=== PATIENT | male | born 1935 | race Caucasian/White ===

== ENCOUNTER 2017-04-13 19:27 | Emergency (ER) | payer MEDICARE, OTHER ==
[2011-12-04 06:31] VITALS: BMI 32.3
== END 2017-04-13 20:27 | disposition home or self-care (01) ==
LOC: D.ER 19:27
DX: S91.311A Laceration without foreign body, right foot, initial encounter (principal); X58.XXXA Exposure to other specified factors, initial encounter; Y93.89 Activity, other specified; Y92.89 Other specified places as the place of occurrence of the external cause; K21.9 Gastro-esophageal reflux disease without esophagitis; I10 Essential (primary) hypertension

== ENCOUNTER → 2018-04-21 08:02 | Outpatient (CLI) | payer MEDICARE, OTHER ==
[2011-12-04 06:31] VITALS: BMI 32.3
[2018-04-21 08:21] LABS: BASOPHILS 0.4 % (0-2); EOSINOPHILS 3.5 % (0-7); HEMATOCRIT 43.1 % (42.0-54.0); IMMATURE GRANULOCYTES 0.4 % (0-5); LYMPHOCYTES 27.5 % (15-50); MCH 33.2 pg (26.0-34.0); MCHC 34.8 g/dL (31.0-37.0); MCV 95.4 fL (80.0-100.0); MEAN PLATELET VOLUME 11.2 fL (7.4-10.4); MONOCYTES 13.2 % (2-11); PLATELET COUNT 161 10x3/uL (130-400); RBC 4.52 10x6/uL (4.20-6.10); RDW 12.5 % (11.5-14.5); WBC 6.8 10x3/uL (4.8-10.8)
[2018-04-21 08:56] LABS: ALBUMIN 3.5 g/dL (3.4-5.0); ALKALINE PHOSPHATASE 87 U/L (46-116); ALT (SGPT) 64 U/L (10-68); BILIRUBIN - TOTAL 0.76 mg/dL (0.2-1.3); CALC OSMOLALITY 272 mosm/kg (275-300); CALCIUM 8.4 mg/dL (8.5-10.1); CARBON DIOXIDE 28.2 mmol/L (21.0-32.0); CHLORIDE - SERUM 100 mmol/L (98-107); CHOL - HDL RATIO 4.7 ratio (2.3-4.9); CHOLESTEROL, TOTAL 188 mg/dL (0-200); GLUCOSE 159 mg/dL (74-106); HDL CHOLESTEROL 40 mg/dL (32-96); LDL CHOLESTEROL 123 mg/dL (0-100); LDL-HDL RATIO 3.1 ratio (1.5-3.5); POTASSIUM - SERUM 4.5 mmol/L (3.5-5.1); PROTEIN - SERUM 7.5 g/dL (6.4-8.2); SODIUM 135 mmol/L (136-145); TRIGLYCERIDE 126 mg/dL (30-200); UREA NITROGEN 13 mg/dL (7-18); eGFR NON AFRICAN AMERICAN 76 mL/min (90-120)
== END | disposition home or self-care (01) ==
LOC: D.LAB 08:02
PROVIDERS: Family Medicine
DX: I10 Essential (primary) hypertension (principal); I25.10 Atherosclerotic heart disease of native coronary artery without angina pectoris; Z12.5 Encounter for screening for malignant neoplasm of prostate; R53.83 Other fatigue; R79.9 Abnormal finding of blood chemistry, unspecified

== ENCOUNTER 2019-12-12 18:49 | Inpatient (IN) | payer MEDICARE, OTHER ==
[~2019-12-12] VITALS: Ht 172.7 cm; Wt 79.5 kg
[2019-12-12 20:03] LABS: BASOPHILS 0.3 % (0-2); EOSINOPHILS 1.4 % (0-7); HEMATOCRIT 47.7 % (42.0-54.0); HEMOGLOBIN 15.8 g/dL (13.5-17.5); IMMATURE GRANULOCYTES 0.7 % (0-5); LYMPHOCYTES 20.8 % (15-50); MCH 32.3 pg (26.0-34.0); MCHC 33.1 g/dL (31.0-37.0); MCV 97.5 fL (80.0-100.0); MEAN PLATELET VOLUME 10.6 fL (7.4-10.4); MONOCYTES 11.5 % (2-11); NEUTROPHILS 65.3 % (40-80); PLATELET COUNT 167 10x3/uL (130-400); RBC 4.89 10x6/uL (4.20-6.10); RDW 13.5 % (11.5-14.5); WBC 5.9 10x3/uL (4.8-10.8)
[2019-12-12 20:16] LABS: ANION GAP 11.5 mmol/L (8-16); CALCIUM 9.4 mg/dL (8.5-10.1); CARBON DIOXIDE 27.7 mmol/L (21.0-32.0); CREATININE - SERUM 1.2 mg/dL (0.6-1.3); POTASSIUM - SERUM 4.2 mmol/L (3.5-5.1)
[2019-12-12 20:26] LABS: ALBUMIN 3.6 g/dL (3.4-5.0); BILIRUBIN - TOTAL 1.02 mg/dL (0.2-1.3); PROTEIN - SERUM 7.8 g/dL (6.4-8.2); TROPONIN-I 0.031 ng/mL (0.000-0.060)
--- NOTE | 2019-12-12 20:32 | NUR ---
PT SITTING UP IN BED. NO ACUTE DISTRESS NOTED, PT DENIES ANY COMPLAINTS AT THIS TIME. WILL CONTINUE TO MONITOR.
--- NOTE | 2019-12-12 21:14 | NUR ---
URINE SENT TO LAB.
[2019-12-12 21:48] LABS: BACTERIA FEW /hpf (NEGATIVE); BILIRUBIN NEGATIVE (NEGATIVE); GLUCOSE NEGATIVE (NEGATIVE); KETONE NEGATIVE (NEGATIVE); NITRITE NEGATIVE (NEGATIVE); RED CELLS - URINE OCC /hpf (0-5); SPECIFIC GRAVITY 1.015 (1.005-1.020); UROBILINOGEN NORMAL (NORMAL); WHITE CELLS - URINE 0-5 /hpf (NEGATIVE)
--- NOTE | 2019-12-12 22:02 | NUR ---
PT UP TO BEDSIDE COMMODE WITH ASSISTANCE. PT DENIES ANY FURTHER NEEDS AT THIS TIME. NO ACUTE DISTRESS NOTED, WILL CONTINUE TO MONITOR.
[2019-12-13 00:03] VITALS: Ht 172.7 cm; Wt 79.5 kg
[2019-12-13] MEDS ORDERED: ASPIRIN EC81 M1 PO (00:16)
[2019-12-13] MEDS ORDERED: SYNTHROID25 MCG PO (00:16)
[2019-12-13] MEDS ORDERED: GLUCOPHAGE1000 MG PO (00:17)
[2019-12-13] MEDS ORDERED: TOPROL XL100 MG PO (00:18)
[2019-12-13] MEDS ORDERED: OMEPRAZOLE20 M1 PO (00:18)
[2019-12-13] MEDS ORDERED: TUMS X-STR300 MG PO (00:19)
[2019-12-13] MEDS ORDERED: PULMICORT0.5 MG/21 INH (00:21)
[2019-12-13] MEDS ORDERED: IPRAT-ALBUT 0.5-3 ML UPD (00:22)
[2019-12-13] MEDS ORDERED: BROVANA15 MCG/2 M INH (00:27)
--- NOTE | 2019-12-13 00:29 | NUR ---
PATIENT RESTING COMFORTABLY IN BED. RESPIRATIONS ARE EVEN AND UNLABORED. NO S/S OF DISTRESS. NO C/O PAIN. CALL LIGHT WITHIN REACH. WILL CPOC.
[2019-12-13 04:55] VITALS: BP 146/59
[2019-12-13 06:20] LABS: BASOPHILS 0.5 % (0-2); EOSINOPHILS 1.8 % (0-7); HEMATOCRIT 45.3 % (42.0-54.0); HEMOGLOBIN 15.3 g/dL (13.5-17.5); IMMATURE GRANULOCYTES 0.6 % (0-5); LYMPHOCYTES 18.5 % (15-50); MCH 32.3 pg (26.0-34.0); MCHC 33.8 g/dL (31.0-37.0); MCV 95.6 fL (80.0-100.0); MEAN PLATELET VOLUME 11.2 fL (7.4-10.4); MONOCYTES 10.8 % (2-11); NEUTROPHILS 67.8 % (40-80); PLATELET COUNT 176 10x3/uL (130-400); RBC 4.74 10x6/uL (4.20-6.10); RDW 13.5 % (11.5-14.5); WBC 6.2 10x3/uL (4.8-10.8)
[2019-12-13 06:41] LABS: ALBUMIN 3.4 g/dL (3.4-5.0); ALKALINE PHOSPHATASE 122 U/L (30-120); ALT (SGPT) 30 U/L (10-68); BILIRUBIN - TOTAL 1.12 mg/dL (0.2-1.3); CALC OSMOLALITY 278 mosm/kg (275-300); CALCIUM 8.9 mg/dL (8.5-10.1); CARBON DIOXIDE 28.5 mmol/L (21.0-32.0); CHLORIDE - SERUM 101 mmol/L (98-107); CKMB 1.3 U/L (0.0-3.6); CREATINE KINASE 102 UL (21-232); GLUCOSE 90 mg/dL (74-106); MAGNESIUM - SERUM 2.2 mg/dL (1.8-2.4); POTASSIUM - SERUM 4.3 mmol/L (3.5-5.1); PROTEIN - SERUM 6.8 g/dL (6.4-8.2); SODIUM 138 mmol/L (136-145); TROPONIN-I 0.044 ng/mL (0.000-0.060); UREA NITROGEN 20 mg/dL (7-18); eGFR NON AFRICAN AMERICAN 76 mL/min (90-120)
--- NOTE | 2019-12-13 07:27 | NUR ---
PATIENT IS RESTING QUIETLY AT THIS TIME. DENIES ANY NEEDS AT THIS TIME. RECIVED REPORT FROM FAIRING MAN.
[2019-12-13 08:35] VITALS: BP 132/54
--- NOTE | 2019-12-13 10:10 | MORECARE ---
CASE MANAGEMENT DISCHARGE SUMMARY PATIENT: KORIN MALLOY UNIT: [id number] ADM DATE: 12/12/19 AGE: 83 : 37 SEX: M ROOM/BED: D.2102 AUTHOR: [place] PHYSICIAN: REFERRING PHYSICIAN: ROSALINDA BALDWIN MD DATE OF SERVICE: 12/13/19 Discharge Plan Patient Name: KORIN MALLOY Facility: [facility]:[place] : 1935 Planned Disposition: Home Anticipated Discharge Date: Discharge Date: Expected LOS: Initial Reviewer: [email or web address] Initial Review Date: 12/13/2019 Generated: 12/13/19 11:10 am DCPIA - Discharge Planning Initial Assessment Updated by [email or web address]: Hal Priest on 12/13/19 10:10 am * Is the patient Alert and Oriented? Yes * How many steps to enter\exit or inside your home? * PCP DR. BALDWIN * Pharmacy [facility] * Preadmission Environment Home Alone * ADLs Independent * Equipment Cane Rolling Walker Walker * Other Equipment NO MEDICAL EQUIPMENT PROVIDER PREFERENCE * List name and contact numbers for known caregivers / representatives who currently or will assist patient after discharge: SAEED MALLOY, SPOUSE, * Verbal permission to speak to the caregivers and representatives has been obtained from the patient. N/A * Community resources currently utilized None * Please name any agencies selected above. NONE * Additional services required to return to the preadmission environment? No * Can the patient safely return to the preadmission environment? Yes * Has this patient been hospitalized within the prior 30 days at any hospital? No Patient Name: KORIN MALLOY Page 55587 at 1010 All edits/amendments must be made on the electronic document DICTATION DATE: 12/13/19 1010 AIR ANALYST: KEKE 12/13/19 1010 RPT#: [id number] DC DATE: STATUS: ADM IN [facility] [address] [place] [address] END OF REPORT
--- NOTE | 2019-12-13 10:14 | NUR ---
PATIENT IS RESTING QUIETLY AT THIS TIME. DENIES ANY NEEDS AT THIS TIME.
--- NOTE | 2019-12-13 10:18 | MORECARE ---
CASE MANAGEMENT DISCHARGE SUMMARY PATIENT: KORIN MALLOY UNIT: [id number] ADM DATE: 12/12/19 AGE: 83 : 37 SEX: M ROOM/BED: D.2102 AUTHOR: BESSIE,DOC PHYSICIAN: REFERRING PHYSICIAN: ROSALINDA BALDWIN MD DATE OF SERVICE: 12/13/19 Discharge Plan Patient Name: KORIN MALLOY Facility: [facility]:[place] : 1935 Planned Disposition: Home Anticipated Discharge Date: Discharge Date: Expected LOS: Initial Reviewer: [email or web address] Initial Review Date: 12/13/2019 Generated: 12/13/19 11:18 am Comments DCP- Discharge Planning Updated by [email or web address]: Hal Priest on 12/13/19 9:[address] Patient Name: KORIN MALLOY Admission Status: ER Accout number: [id number] Admission Date: 12-12-2019 : 1935 Admission Diagnosis: Attending: ROSALINDA BALDWIN Current LOS: 1 Anticipated DC Date: Planned Disposition: Home Primary Insurance: MEDICARE A & B Discharge Planning Comments: CM MET WITH PT IN ROOM TO DISCUSS DISCHARGE PLANNING AND NEEDS. PT REPORTS LIVING AT HOME INDEPENDENTLY WITH HIS . PT HAS CANE, ROLLING WALKER WITH SEAT AND STANDARD WALKER WITH NO MEDICAL EQUIPMENT PROVIDER PREFERENCE. PT HAS NO OUTSIDE SERVICES ASSISTING IN THE HOME. CM DISCUSSED AVAILABILITY OF HOME HEALTH, REHAB SERVICES AND MEDICAL EQUIPMENT. PT DENIES DISCHARGE NEEDS, REPORTS HE WILL PROBABLY TAKE A TAXI CAB FOR DISCHARGE HOME. PT PLANS TO DISCHARGE HOME WITH SPOUSE, PLANS TO TAKE TAXI CAB HOME AT DISCHARGE. PT HAS NO KNOWN DISCHARGE NEEDS AT THIS TIME. CM TO FOLLOW AND ASSIST IF NEEDED. Electric Fan Assembler: Hal Priest DCPIA - Discharge Planning Initial Assessment Updated by [email or web address]: Hal Priest on 12/13/19 10:10 am * Is the patient Alert and Oriented? Yes * How many steps to enter\exit or inside your home? * PCP DR. BALDWIN * Pharmacy [facility] * Preadmission Environment Home Alone * ADLs Independent * Equipment Cane Rolling Walker Walker * Other Equipment NO MEDICAL EQUIPMENT PROVIDER PREFERENCE * List name and contact numbers for known caregivers / representatives who currently or will assist patient after discharge: SAEED MALLOY, SPOUSE, * Verbal permission to speak to the caregivers and representatives has been obtained from the patient. N/A * Community resources currently utilized None * Please name any agencies selected above. NONE * Additional services required to return to the preadmission environment? No * Can the patient safely return to the preadmission environment? Yes * Has this patient been hospitalized within the prior 30 days at any hospital? No Last DP export: 12/13/19 9:10 a Patient Name: KORIN MALLOY Page [phone] at 1018 All edits/amendments must be made on the electronic document DICTATION DATE: 12/13/19 1018 RADAR SCIENTIST: KEKE 12/13/19 1018 RPT#: [id number] DC DATE: STATUS: ADM IN [facility] [address] [place] [address] END OF REPORT
--- NOTE | 2019-12-13 15:54 | NUR ---
BED BATH COMPLETE, LINEN CHANGE.
[2019-12-13 17:27] VITALS: BP 145/57
--- NOTE | 2019-12-13 18:32 | NUR ---
PATIENT REQUEST PAIN MEDICATION, CALLED DR BALDWIN, AND HE IS ORDERING PAIN MEDS NOW.
[2019-12-13 20:30] VITALS: BP 139/48
--- NOTE | 2019-12-13 20:55 | NUR ---
PT LYING IN BED AWAKE ALERT AND ORIENTED x4. NO SIGNS OR SYMPTOMS OF DISTRESS NOTED. RESPIRATIONS EVEN AND UNLABORED. NO COMPLAINTS AT THIS TIME. PT ENCOURAGED TO CALL FOR HELP WHEN GETTING IN AND OUT OF BED. CALL LIGHT WITH IN REACH AND BEDS IN LOWEST POSITION. WILL CONTINUE TO MONITOR
[2019-12-13 23:30] VITALS: BP 167/64
--- NOTE | 2019-12-14 00:47 | NUR ---
PRN PAIN MEDICATION GIVEN FOR 7/10 PAIN LEVEL. PT ENCOURAGED TO CALL FOR HELP WHEN GETTING IN AND OUT OF BED OR NEEDED. CALL LIGHT WITH IN REACH AND BED IS IN LOWEST POSITION. WILL CONTINUE TO MONITOR
[2019-12-14 05:14] VITALS: BP 138/70
--- NOTE | 2019-12-14 05:23 | NUR ---
I have reviewed this patient and I concur with the Shift Assessment completed by the Licensed Practical Nurse today this shift.
--- NOTE | 2019-12-14 06:06 | NUR ---
PT LYING IN BED AWAKE AND ORIENTED x4. CALL LIGHT WITH IN REACH WILL CONTINUE TO MONITOR
[2019-12-14 06:08] LABS: BASOPHILS 0.3 % (0-2); EOSINOPHILS 1.2 % (0-7); HEMATOCRIT 49.4 % (42.0-54.0); HEMOGLOBIN 16.4 g/dL (13.5-17.5); IMMATURE GRANULOCYTES 0.8 % (0-5); LYMPHOCYTES 21.2 % (15-50); MCH 32.1 pg (26.0-34.0); MCHC 33.2 g/dL (31.0-37.0); MCV 96.7 fL (80.0-100.0); MEAN PLATELET VOLUME 11.3 fL (7.4-10.4); MONOCYTES 14.3 % (2-11); NEUTROPHILS 62.2 % (40-80); PLATELET COUNT 179 10x3/uL (130-400); RBC 5.11 10x6/uL (4.20-6.10); RDW 13.3 % (11.5-14.5); WBC 5.9 10x3/uL (4.8-10.8)
[2019-12-14 06:49] LABS: MAGNESIUM - SERUM 2.3 mg/dL (1.8-2.4); PHOSPHOROUS 3.3 mg/dL (2.5-4.9); THYROID STIMULATING HORMONE 2.43 uIU/mL (0.36-3.74)
--- NOTE | 2019-12-14 08:03 | NUR ---
RECIEVED REPORT. PATIENT IS ALERT AND AWAKE AND DENIES ANYNEEDS AT THIS TIME. HE STATES THAT HE WANTS TO GO HOME SOON POSSIBLE, HE TAKES CARE OF HIS , AND HE IS CONCERNED ABOUT THIER CATS. TODAY IS HIS BIRTHDAY.
[2019-12-14 09:30] VITALS: BP 146/59
--- NOTE | 2019-12-14 11:55 | NUR ---
BED ALARM SOUNDING. PT GOING TO RESTROOM. PT ENCOURAGED TO CALL FOR HELP WHEN GETTING IN AND OUT OF BED. CALL LIGHT WITH IN REACH. WILL CONTINUE TO MONITOR
[2019-12-14 13:44] VITALS: BP 148/65
--- NOTE | 2019-12-14 19:24 | NUR ---
PT LYING IN BED AWAKE ALERT AND ORIENTED x4 NO SIGNS OF DISTRESS NOTED. RESPIRATIONS EVEN AND UNLABORED. JORJE BED ALARM ON AND ACTIVE. PT ENCOURAGED TO CALL FOR HELP WHEN GETTING IN AND OUT OF BED. CALL LIGHT WITH IN REACH AND BED IS IN LOWEST POSITION. WILL CONTINUE TO MONITOR.
[2019-12-14 20:00] VITALS: BP 135/58
--- NOTE | 2019-12-14 23:15 | NUR ---
BED ALARM SOUNDING. PT GETTING OUT OF BED TO GO TO THE RESTROOM. PT REFUSES TO USE CALL LIGHT. PT ENCOURAGED TO USE CALL LIGHT WHEN GETTING IN AND OUT OF BED. ASSIST PT BACK TO BED. CALL LIGHT WITH IN REACH AND BED IS IN LOWEST POSITION. WILL CONTINUE TO MONITOR
[2019-12-15] VITALS (11 sets, daily range): BP systolic 127–157; BP diastolic 57–79
--- NOTE | 2019-12-15 01:21 | NUR ---
PT LYING IN BED RESTINGWITH EYES CLOSED. EASILY AWAKEN WITH VOICE STIMULATION. CALL LIGHT WITH IN REACH. WILL CONTINUE TO MONITOR
--- NOTE | 2019-12-15 01:33 | NUR ---
I have reviewed this patient and I concur with the Shift Assessment completed by the Licensed Practical Nurse today this shift.
--- NOTE | 2019-12-15 02:13 | NUR ---
PT IS NON COMPLAINT WITH FALL RISK RULES. HE REFUSES TO CALL FOR HELP WHEN GETTING OUT OF BED. HE REFUSES TO WEAR SOCKS OR SHOES WHEN GOING TO RESTROOM BED ALARM SOUNDING. AND STAND BY ASSIST PROVIDED. ASSIST PT BACK TO BED. PT HIGH ENCOURAGED TO CALL FOR HELP WHEN GETTING TO AND FROM BED. CALL LIGHT WITH IN REACH AND JORJE BED ALARM ON AND ACTIVE. WILL ROUND FREQUENTLY. WILL CONTINUE TO MONITOR
--- NOTE | 2019-12-15 08:22 | MORECARE ---
CASE MANAGEMENT DISCHARGE SUMMARY PATIENT: KORIN MALLOY UNIT: [id number] ADM DATE: 12/12/19 AGE: 84 : 37 SEX: M ROOM/BED: D.2102 AUTHOR: BESSIE,DOC PHYSICIAN: REFERRING PHYSICIAN: ROSALINDA BALDWIN MD DATE OF SERVICE: 12/15/19 Discharge Plan Patient Name: KORIN MALLOY Facility: [facility]:[place] : 1935 Planned Disposition: Home Anticipated Discharge Date: Discharge Date: Expected LOS: Initial Reviewer: [email or web address] Initial Review Date: 12/13/2019 Generated: 12/15/19 9:22 am DCP- Discharge Planning Updated by [email or web address]: Hal Priest on 12/13/19 9:[address] Patient Name: KORIN MALLOY Admission Status: ER Accout number: [id number] Admission Date: 12-12-2019 : 1935 Admission Diagnosis: Attending: ROSALINDA BALDWIN Current LOS: 1 Anticipated DC Date: Planned Disposition: Home Primary Insurance: MEDICARE A & B Discharge Planning Comments: CM MET WITH PT IN ROOM TO DISCUSS DISCHARGE PLANNING AND NEEDS. PT REPORTS LIVING AT HOME INDEPENDENTLY WITH HIS . PT HAS CANE, ROLLING WALKER WITH SEAT AND STANDARD WALKER WITH NO MEDICAL EQUIPMENT PROVIDER PREFERENCE. PT HAS NO OUTSIDE SERVICES ASSISTING IN THE HOME. CM DISCUSSED AVAILABILITY OF HOME HEALTH, REHAB SERVICES AND MEDICAL EQUIPMENT. PT DENIES DISCHARGE NEEDS, REPORTS HE WILL PROBABLY TAKE A TAXI CAB FOR DISCHARGE HOME. PT PLANS TO DISCHARGE HOME WITH SPOUSE, PLANS TO TAKE TAXI CAB HOME AT DISCHARGE. PT HAS NO KNOWN DISCHARGE NEEDS AT THIS TIME. CM TO FOLLOW AND ASSIST IF NEEDED. Turner And Former Automatic: Hal Priest DCPIA - Discharge Planning Initial Assessment Updated by [email or web address]: Hal Priest on 12/13/19 10:10 am * Is the patient Alert and Oriented? Yes * How many steps to enter\exit or inside your home? * PCP DR. BALDWIN * Pharmacy [facility] * Preadmission Environment Home Alone * ADLs Independent * Equipment Cane Rolling Walker Walker * Other Equipment NO MEDICAL EQUIPMENT PROVIDER PREFERENCE * List name and contact numbers for known caregivers / representatives who currently or will assist patient after discharge: SAEED MALLOY, SPOUSE, * Verbal permission to speak to the caregivers and representatives has been obtained from the patient. N/A * Community resources currently utilized None * Please name any agencies selected above. NONE * Additional services required to return to the preadmission environment? No * Can the patient safely return to the preadmission environment? Yes * Has this patient been hospitalized within the prior 30 days at any hospital? No Last DP export: 12/13/19 9:18 a Patient Name: KORIN MALLOY Page [id number] at 0822 All edits/amendments must be made on the electronic document DICTATION DATE: 12/15/19821 CLINICAL LABORATORY DIRECTOR: KEKE 12/15/19821 RPT#: [id number] DC DATE: STATUS: ADM IN [facility] [address] [place] [address] END OF REPORT
--- NOTE | 2019-12-15 08:36 | MORECARE ---
CASE MANAGEMENT DISCHARGE SUMMARY PATIENT: KORIN MALLOY UNIT: [id number] ADM DATE: 12/12/19 AGE: 84 : 37 SEX: M ROOM/BED: D.2102 AUTHOR: BESSIE,DOC PHYSICIAN: REFERRING PHYSICIAN: ROSALINDA BALDWIN MD DATE OF SERVICE: 12/15/19 Discharge Plan Patient Name: KORIN MALLOY Facility: [facility]:[place] : 1935 Planned Disposition: Home Anticipated Discharge Date: Discharge Date: Expected LOS: Initial Reviewer: [email or web address] Initial Review Date: 12/13/2019 Generated: 12/15/19 9:35 am DCP- Discharge Planning Updated by [email or web address]: Hal Priest on 12/13/19 9:[address] Patient Name: KORIN MALLOY Admission Status: ER Accout number: [id number] Admission Date: 12-12-2019 : 1935 Admission Diagnosis: Attending: ROSALINDA BALDIWN Current LOS: 1 Anticipated DC Date: Planned Disposition: Home Primary Insurance: MEDICARE A & B Discharge Planning Comments: CM MET WITH PT IN ROOM TO DISCUSS DISCHARGE PLANNING AND NEEDS. PT REPORTS LIVING AT HOME INDEPENDENTLY WITH HIS . PT HAS CANE, ROLLING WALKER WITH SEAT AND STANDARD WALKER WITH NO MEDICAL EQUIPMENT PROVIDER PREFERENCE. PT HAS NO OUTSIDE SERVICES ASSISTING IN THE HOME. CM DISCUSSED AVAILABILITY OF HOME HEALTH, REHAB SERVICES AND MEDICAL EQUIPMENT. PT DENIES DISCHARGE NEEDS, REPORTS HE WILL PROBABLY TAKE A TAXI CAB FOR DISCHARGE HOME. PT PLANS TO DISCHARGE HOME WITH SPOUSE, PLANS TO TAKE TAXI CAB HOME AT DISCHARGE. PT HAS NO KNOWN DISCHARGE NEEDS AT THIS TIME. CM TO FOLLOW AND ASSIST IF NEEDED. Station Jailer: Hal Priest DCPIA - Discharge Planning Initial Assessment Updated by [email or web address]: Hal Priest on 12/13/19 10:10 am * Is the patient Alert and Oriented? Yes * How many steps to enter\exit or inside your home? * PCP DR. BALDWIN * [facility] * Preadmission Environment Home Alone * ADLs Independent * Equipment Cane Rolling Walker Walker * Other Equipment NO MEDICAL EQUIPMENT PROVIDER PREFERENCE * List name and contact numbers for known caregivers / representatives who currently or will assist patient after discharge: SAEED MALLOY, SPOUSE, * Verbal permission to speak to the caregivers and representatives has been obtained from the patient. N/A * Community resources currently utilized None * Please name any agencies selected above. NONE * Additional services required to return to the preadmission environment? No * Can the patient safely return to the preadmission environment? Yes * Has this patient been hospitalized within the prior 30 days at any hospital? No Last DP export: 12/15/19 7:22 am Patient Name: KORIN MALLOY Page 10733 at 0836 All edits/amendments must be made on the electronic document DICTATION DATE: 12/15/19834 MECHANICAL LABORATORY TECHNICIAN: KEKE 12/15/19834 RPT#: [id number] DC DATE: STATUS: ADM IN [facility] [address] [place] [address] END OF REPORT
--- NOTE | 2019-12-15 13:09 | NUR ---
I have reviewed this patient and I concur with the Shift Assessment completed by the Licensed Practical Nurse today this shift.
[2019-12-16] VITALS: BP 124/64
--- NOTE | 2019-12-16 00:32 | NUR ---
ASSESSED AT THE BEGINNING OF THE SHIFT. PT IS ALERT AND ORIENTED, ABLE TO VERBALIZE NEEDS. HE IS UP TO THE BATHROOM WITH MININAL ASSIST. AND IS WERAING O2 AT 2 LITERS PER N/C. 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 HE TOOK A PAIN PILL BEFORE BED FOR GENERALIZED PAIN AND AT THIS TIME IS RESTING QUIET WITH TV ON.
[2019-12-16 04:00] VITALS: BP 163/71
[2019-12-16 09:00] VITALS: BP 176/88
[2019-12-16 10:08] LABS: FUNGUS STAIN Final report (())
--- NOTE | 2019-12-16 11:36 | MORECARE ---
CASE MANAGEMENT DISCHARGE SUMMARY PATIENT: KORIN MALLOY UNIT: [id number] ADM DATE: 12/12/19 AGE: 84 : 37 SEX: M ROOM/BED: D.2102 AUTHOR: BESSIE,DOC PHYSICIAN: REFERRING PHYSICIAN: ROSALINDA BALDWIN MD DATE OF SERVICE: 12/16/19 Discharge Plan Patient Name: KROIN MALLOY Facility: [facility]:[place] : 1935 Planned Disposition: Home with Home Health Anticipated Discharge Date: 12/16/19 Discharge Date: Expected LOS: 4 Initial Reviewer: [email or web address] Initial Review Date: 12/13/2019 Generated: 12/16/19 12:35 pm DCP- Discharge Planning Updated by [email or web address]: Hal Priest on 12/13/19 9:[address] Patient Name: KORIN MALLOY Admission Status: ER Accout number: [id number] Admission Date: 12-12-2019 : 1935 Admission Diagnosis: Attending: ROSALINDA BALDWIN Current LOS: 1 Anticipated DC Date: Planned Disposition: Home Primary Insurance: MEDICARE A & B Discharge Planning Comments: CM MET WITH PT IN ROOM TO DISCUSS DISCHARGE PLANNING AND NEEDS. PT REPORTS LIVING AT HOME INDEPENDENTLY WITH HIS . PT HAS CANE, ROLLING WALKER WITH SEAT AND STANDARD WALKER WITH NO MEDICAL EQUIPMENT PROVIDER PREFERENCE. PT HAS NO OUTSIDE SERVICES ASSISTING IN THE HOME. CM DISCUSSED AVAILABILITY OF HOME HEALTH, REHAB SERVICES AND MEDICAL EQUIPMENT. PT DENIES DISCHARGE NEEDS, REPORTS HE WILL PROBABLY TAKE A TAXI CAB FOR DISCHARGE HOME. PT PLANS TO DISCHARGE HOME WITH SPOUSE, PLANS TO TAKE TAXI CAB HOME AT DISCHARGE. PT HAS NO KNOWN DISCHARGE NEEDS AT THIS TIME. CM TO FOLLOW AND ASSIST IF NEEDED. Pleater: Hal Priest DCPIA - Discharge Planning Initial Assessment Updated by [email or web address]: Hal Priest on 12/13/19 10:10 am * Is the patient Alert and Oriented? Yes * How many steps to enter\exit or inside your home? * PCP DR. BALDWIN * Pharmacy [facility] * Preadmission Environment Home Alone * ADLs Independent * Equipment Cane Rolling Walker Walker * Other Equipment NO MEDICAL EQUIPMENT PROVIDER PREFERENCE * List name and contact numbers for known caregivers / representatives who currently or will assist patient after discharge: SAEED MALLOY, SPOUSE, * Verbal permission to speak to the caregivers and representatives has been obtained from the patient. N/A * Community resources currently utilized None * Please name any agencies selected above. NONE * Additional services required to return to the preadmission environment? No * Can the patient safely return to the preadmission environment? Yes * Has this patient been hospitalized within the prior 30 days at any hospital? No External Providers External Provider: [facility] Next Contact Date: 12/16/2019 Service Request Date: Service Type: Resolution: Reviewer: Comments: [facility] Next Contact Date: 12/16/2019 Service Request Date: Service Type: Resolution: Reviewer: Comments: Last DP export: 12/15/19 7:36 am Patient Name: KORIN MALLOY Page [id number] at 1136 All edits/amendments must be made on the electronic document DICTATION DATE: 12/16/19 1136 CALIBRATION TECHNICIAN: KEKE 12/16/19 1136 RPT#: [id number] DC DATE: STATUS: ADM IN [facility] [address] [place] [address] END OF REPORT
[2019-12-16 12:00] VITALS: BP 150/69
--- NOTE | 2019-12-16 12:05 | MORECARE ---
CASE MANAGEMENT DISCHARGE SUMMARY PATIENT: KORIN MALLOY UNIT: [id number] ADM DATE: 12/12/19 AGE: 84 : 37 SEX: M ROOM/BED: D.2102 AUTHOR: BESSIE,DOC PHYSICIAN: REFERRING PHYSICIAN: ROSALINDA BALDWIN MD DATE OF SERVICE: 12/16/19 Discharge Plan Patient Name: KORIN MALLOY Facility: [facility]:[place] : 1935 Planned Disposition: Home with Home Health Anticipated Discharge Date: 12/16/19 Discharge Date: Expected LOS: 4 Initial Reviewer: [email or web address] Initial Review Date: 12/13/2019 Generated: 12/16/19 1:05 pm Comments DCP- Discharge Planning Updated by [email or web address]: Hal Priest on 12/16/19 11:[address] Patient Name: KORIN MALLOY Admission Status: ER Accout number: [id number] Admission Date: 12-12-2019 : 1935 Admission Diagnosis:SHORTNESS OF BREATH Attending: ROSALINDA BALDWIN Current LOS: 4 Anticipated DC Date: 12-16-2019 Planned Disposition: Home with Home Health Primary Insurance: MEDICARE A & B PLANNED EXTERNAL PROVIDER: [facility] Discharge Planning Comments: CM RECEIVED OXYGEN AND HOME HEALTH ORDERS. CM MET WITH PT IN ROOM TO DISCUSS DISCHARGE NEEDS AND PLANNING. PT CALLED HIS ON THE PHONE TO ASSIST WITH PLANNING. CM DISCUSSED AVAILABILITY OF HOME HEALTH, REHAB SERVICES AND MEDICAL EQUIPMENT. PT WILL ACCEPT OXYGEN AND HOME HEALTH, PT'S SPOUSE [facility], CHOICE SIGNED BY PT. PT'S SPOUSE UPSET THAT THE DOCTOR IS NOT TELLING HER WHAT IS GOING ON. DR. JOHNSON ENTERED ROOM AND INFORMED CM THAT SHE WILL CALL PT'S SPOUSE AFTER CONSULTING WITH PT TODAY. PT'S SPOUSE TO TRANSPORT HOME AT DISCHARGE TODAY, PT IN AGREEMENT WITH DISCHARGE PLAN, DENIES FURTHER NEEDS. IMPORTANT MESSAGE FROM MEDICARE PROVIDED AND EXPLAINED. 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 CM CALLED [facility], , SPOKE TO RODRIGUEZ, PROVIDED REFERRAL INFORMATION. CM FAXED REFERRAL INFORMATION TO [facility], . CM CALLED [facility] [place], , SPOKE TO TRISTA WHO TOOK OXYGEN ORDER. CM FAXED OXYGEN AND NEBULIZER ORDERS TO [facility] AT [phone]. [facility] TO ARRANGE PORTABLE OXYGEN TO HOPITAL ROOM AND HOME DELIVERY AFTER PT ARRIVES HOME TODAY. SETTER COLD ROLLING MACHINE NURSE NOTIFIED. Patient Registration Clerk: Hal Priest DCP- Discharge Planning Updated by [id number]: Hal Priest on 12/13/19 9:[address] Patient Name: KORIN MALLOY Admission Status: ER Accout number: [id number] Admission Date: 12-12-2019 : 1935 Admission Diagnosis: Attending: ROSALINDA BALDWIN Current LOS: 1 Anticipated DC Date: Planned Disposition: Home Primary Insurance: MEDICARE A & B Discharge Planning Comments: CM MET WITH PT IN ROOM TO DISCUSS DISCHARGE PLANNING AND NEEDS. PT REPORTS LIVING AT HOME INDEPENDENTLY WITH HIS . PT HAS CANE, ROLLING WALKER WITH SEAT AND STANDARD WALKER WITH NO MEDICAL EQUIPMENT PROVIDER PREFERENCE. PT HAS NO OUTSIDE SERVICES ASSISTING IN THE HOME. CM DISCUSSED AVAILABILITY OF HOME HEALTH, REHAB SERVICES AND MEDICAL EQUIPMENT. PT DENIES DISCHARGE NEEDS, REPORTS HE WILL PROBABLY TAKE A TAXI CAB FOR DISCHARGE HOME. PT PLANS TO DISCHARGE HOME WITH SPOUSE, PLANS TO TAKE TAXI CAB HOME AT DISCHARGE. PT HAS NO KNOWN DISCHARGE NEEDS AT THIS TIME. CM TO FOLLOW AND ASSIST IF NEEDED. Patient Registration Clerk: Hal Priest DCPIA - Discharge Planning Initial Assessment Updated by [email or web address]: Hal Priest on 12/13/19 10:10 am * Is the patient Alert and Oriented? Yes * How many steps to enter\exit or inside your home? * PCP DR. BALDWIN * [facility] * Preadmission Environment Home Alone * ADLs Independent * Equipment Cane Rolling Walker Walker * Other Equipment NO MEDICAL EQUIPMENT PROVIDER PREFERENCE * List name and contact numbers for known caregivers / representatives who currently or will assist patient after discharge: SAEED MALLOY, SPOUSE, * Verbal permission to speak to the caregivers and representatives has been obtained from the patient. N/A * Community resources currently utilized None * Please name any agencies selected above. NONE * Additional services required to return to the preadmission environment? No * Can the patient safely return to the preadmission environment? Yes * Has this patient been hospitalized within the prior 30 days at any hospital? No Last DP export: 12/16/19 10:36 am Patient Name: KORIN MALLOY Page [phone] at 1205 All edits/amendments must be made on the electronic document DICTATION DATE: 12/16/19 1205 UNPAID INTERN: KEKE 12/16/19 1205 RPT#: [id number] DC DATE: STATUS: ADM IN [facility] [address] [place] [address] END OF REPORT
[2019-12-16] MEDS ORDERED: PROVENTIL/2.5 MG/3 M INH (13:25)
[2019-12-16] MEDS ORDERED: VENTOLIN HFA [SP8 GM INH (13:31)
--- NOTE | 2019-12-16 13:34 | NUR ---
I have reviewed this patient and I concur with the Shift Assessment completed by the Licensed Practical Nurse today this shift.
--- NOTE | 2019-12-16 13:50 | MORECARE ---
CASE MANAGEMENT DISCHARGE SUMMARY PATIENT: KORIN MALLOY UNIT: [id number] ADM DATE: 12/12/19 AGE: 84 : 37 SEX: M ROOM/BED: D.2107 AUTHOR: BESSIE,DOC PHYSICIAN: REFERRING PHYSICIAN: ROSALINDA BALDWIN MD DATE OF SERVICE: 12/16/19 Discharge Plan Patient Name: KORIN MALLOY Facility: [facility]:[place] : 1935 Planned Disposition: Home with Home Health Anticipated Discharge Date: 12/16/19 Discharge Date: Expected LOS: 4 Initial Reviewer: [email or web address] Initial Review Date: 12/13/2019 Generated: 12/16/19 2:49 pm Comments DCP- Discharge Planning Updated by [id number]: Hal Priest on 12/16/19 11:[address] Patient Name: KORIN MALLOY Admission Status: ER Accout number: [id number] Admission Date: 12-12-2019 : 1935 Admission Diagnosis:SHORTNESS OF BREATH Attending: ROSALINDA BALDWIN Current LOS: 4 Anticipated DC Date: 12-16-2019 Planned Disposition: Home with Home Health Primary Insurance: MEDICARE A & B PLANNED EXTERNAL PROVIDER: [facility] Discharge Planning Comments: CM RECEIVED OXYGEN AND HOME HEALTH ORDERS. CM MET WITH PT IN ROOM TO DISCUSS DISCHARGE NEEDS AND PLANNING. PT CALLED HIS ON THE PHONE TO ASSIST WITH PLANNING. CM DISCUSSED AVAILABILITY OF HOME HEALTH, REHAB SERVICES AND MEDICAL EQUIPMENT. PT WILL ACCEPT OXYGEN AND HOME HEALTH, PT'S SP[facility] CHOICE SIGNED BY PT. PT'S SPOUSE UPSET THAT THE DOCTOR IS NOT TELLING HER WHAT IS GOING ON. DR. JOHNSON ENTERED ROOM AND INFORMED CM THAT SHE WILL CALL PT'S SPOUSE AFTER CONSULTING WITH PT TODAY. PT'S SPOUSE TO TRANSPORT HOME AT DISCHARGE TODAY, PT IN AGREEMENT WITH DISCHARGE PLAN, DENIES FURTHER NEEDS. IMPORTANT MESSAGE FROM MEDICARE PROVIDED AND EXPLAINED. 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 CM CALLED [employer], , SPOKE TO RODRIGUEZ, PROVIDED REFERRAL INFORMATION. CM FAXED REFERRAL INFORMATION TO [email or web address] [facility], . CM CALLED [facility], , SPOKE TO TRISTA WHO TOOK OXYGEN ORDER. CM FAXED OXYGEN AND NEBULIZER ORDERS TO [facility] AT [phone]. [facility] TO ARRANGE PORTABLE OXYGEN TO HOPITAL ROOM AND HOME DELIVERY AFTER PT ARRIVES HOME TODAY. CHEMISTS NURSE NOTIFIED. Plastic Extrusion Operator: Hal Priest DCP- Discharge Planning Updated by [id number]: Hal Priest on 12/13/19 9:[address] Patient Name: KORIN MALLOY Admission Status: ER Accout number: [id number] Admission Date: 12-12-2019 : 1935 Admission Diagnosis: Attending: ROSALINDA BALDWIN Current LOS: 1 Anticipated DC Date: Planned Disposition: Home Primary Insurance: MEDICARE A & B Discharge Planning Comments: CM MET WITH PT IN ROOM TO DISCUSS DISCHARGE PLANNING AND NEEDS. PT REPORTS LIVING AT HOME INDEPENDENTLY WITH HIS . PT HAS CANE, ROLLING WALKER WITH SEAT AND STANDARD WALKER WITH NO MEDICAL EQUIPMENT PROVIDER PREFERENCE. PT HAS NO OUTSIDE SERVICES ASSISTING IN THE HOME. CM DISCUSSED AVAILABILITY OF HOME HEALTH, REHAB SERVICES AND MEDICAL EQUIPMENT. PT DENIES DISCHARGE NEEDS, REPORTS HE WILL PROBABLY TAKE A [employer] CAB FOR DISCHARGE HOME. PT PLANS TO DISCHARGE HOME WITH SPOUSE, PLANS TO TAKE [employer] HOME AT DISCHARGE. PT HAS NO KNOWN DISCHARGE NEEDS AT THIS TIME. CM TO FOLLOW AND ASSIST IF NEEDED. Plastic Extrusion Operator: Hal Priest DCPIA - Discharge Planning Initial Assessment Updated by [id number]: Hal Priest on 12/13/19 10:10 am * Is the patient Alert and Oriented? Yes * How many steps to enter\exit or inside your home? * PCP DR. BALDWIN * Pharmacy [facility] * Preadmission Environment Home Alone * ADLs Independent * Equipment Cane Rolling Walker Walker * Other Equipment NO MEDICAL EQUIPMENT PROVIDER PREFERENCE * List name and contact numbers for known caregivers / representatives who currently or will assist patient after discharge: SAEED MALLOY, SPOUSE, * Verbal permission to speak to the caregivers and representatives has been obtained from the patient. N/A * Community resources currently utilized None * Please name any agencies selected above. NONE * Additional services required to return to the preadmission environment? No * Can the patient safely return to the preadmission environment? Yes * Has this patient been hospitalized within the prior 30 days at any hospital? No Coverage Notice Reviewer: [email or web address] Priest Notice Issued Date-Time: 12/16/2019 10:35 Notice Type: IM Discharge Notice Notice Delivered To: Patient Relationship to Patient: Scaffolder Name: Delivery Method: HAND - Hand Delivered Xiomara Days: Prior Verbal Notification: Recipient Understood Notice: Yes Recipient Signature: Yes Med Rec Note Co-signed by Attending: Coverage Notice Comment: Reviewer: [email or web address] Priest Notice Issued Date-Time: 12/16/2019 10:35 Notice Type: Patient Choice Letter Notice Delivered To: Patient Relationship to Patient: Scaffolder Name: Delivery Method: HAND - Hand Delivered Xiomara Days: Prior Verbal Notification: Recipient Understood Notice: Yes Recipient Signature: Yes Med Rec Note Co-signed by Attending: Coverage Notice Comment: [facility] OR NO PROVIDER PREFERENCE FOR MEDICAL EQUIPMENT Last DP export: 12/16/19 11:05 am Patient Name: KROIN MALLOY Page [phone] at 1350 All edits/amendments must be made on the electronic document DICTATION DATE: 12/16/19 1349 LIGHTOUT EXAMINER: KEKE 12/16/19 1349 RPT#: [id number] DC DATE: STATUS: ADM IN [facility] [address] [place] [address] END OF REPORT
--- NOTE | 2019-12-16 14:08 | NUR ---
PT DISCHARGED HOME VIA WHEELCHAIR WITH FAMILY. PIV REMOVED WITH CATHETER TIP FULLY INTACT. PT SIGNED PROPER DISCHARGE INSTRUCTIONS AND REMOVED ALL VALUABLES FROM THE ROOM. TELEMETRY REMOVED AND RETURNED.
[2019-12-16 15:09] LABS: ACID FAST SMEAR Negative (()); AFB SPECIMEN PROCESSING Concentration (())
[2019-12-16 16:08] LABS: IMMUNOGLOBULIN E 117 IU/mL (6-495)
== END 2019-12-16 14:09 | disposition home health service (06) | DRG 197 ==
LOC: D.ER 18:49 → D.M2 22:55
PROVIDERS: Family Medicine; Internal Medicine Pulmonary Disease; ADMIT Family Medicine; ATTEND Family Medicine
PROC: 0BB48ZX Excision of Right Upper Lobe Bronchus, Via Natural or Artificial Opening Endoscopic, Diagnostic (ICD-10-PCS; 2019-12-15)
PROC: 0BB88ZX Excision of Left Upper Lobe Bronchus, Via Natural or Artificial Opening Endoscopic, Diagnostic (ICD-10-PCS; 2019-12-15)
PROC: 0BB18ZX Excision of Trachea, Via Natural or Artificial Opening Endoscopic, Diagnostic (ICD-10-PCS; 2019-12-15)
PROC: 0BB58ZX Excision of Right Middle Lobe Bronchus, Via Natural or Artificial Opening Endoscopic, Diagnostic (ICD-10-PCS; 2019-12-15)
PROC: 0BB38ZX Excision of Right Main Bronchus, Via Natural or Artificial Opening Endoscopic, Diagnostic (ICD-10-PCS; 2019-12-15)
PROC: 0BB78ZX Excision of Left Main Bronchus, Via Natural or Artificial Opening Endoscopic, Diagnostic (ICD-10-PCS; 2019-12-15)
PROC: 0BB68ZX Excision of Right Lower Lobe Bronchus, Via Natural or Artificial Opening Endoscopic, Diagnostic (ICD-10-PCS; 2019-12-15)
PROC: 0BBB8ZX Excision of Left Lower Lobe Bronchus, Via Natural or Artificial Opening Endoscopic, Diagnostic (ICD-10-PCS; 2019-12-15)
PROC: 0BB98ZX Excision of Lingula Bronchus, Via Natural or Artificial Opening Endoscopic, Diagnostic (ICD-10-PCS; 2019-12-15)
PROC: 0BB28ZX Excision of Carina, Via Natural or Artificial Opening Endoscopic, Diagnostic (ICD-10-PCS; principal; 2019-12-15 13:00)
DX: J61 Pneumoconiosis due to asbestos and other mineral fibers (principal); C34.92 Malignant neoplasm of unspecified part of left bronchus or lung; J90 Pleural effusion, not elsewhere classified; J98.11 Atelectasis; C34.91 Malignant neoplasm of unspecified part of right bronchus or lung; J44.0 Chronic obstructive pulmonary disease with (acute) lower respiratory infection; R04.2 Hemoptysis; J18.9 Pneumonia, unspecified organism; K59.00 Constipation, unspecified; I25.10 Atherosclerotic heart disease of native coronary artery without angina pectoris; I10 Essential (primary) hypertension; M81.0 Age-related osteoporosis without current pathological fracture; K57.90 Diverticulosis of intestine, part unspecified, without perforation or abscess without bleeding; K80.20 Calculus of gallbladder without cholecystitis without obstruction; N28.1 Cyst of kidney, acquired; K76.89 Other specified diseases of liver; E11.9 Type 2 diabetes mellitus without complications; K21.9 Gastro-esophageal reflux disease without esophagitis; E27.9 Disorder of adrenal gland, unspecified; E03.9 Hypothyroidism, unspecified; J04.10 Acute tracheitis without obstruction

== ENCOUNTER 2019-12-27 10:49 | Inpatient (IN) | payer MEDICARE, OTHER ==
[~2019-12-27] VITALS: Ht 172.7 cm; Wt 82.9 kg
[~2019-12-27 10:49] MED LIST: ASPIRIN EC81 M1 PO; BROVANA15 MCG/2 M INH; GLUCOPHAGE1000 MG PO; IPRAT-ALBUT 0.5-3 ML UPD; OMEPRAZOLE20 M1 PO; PROVENTIL/2.5 MG/3 M INH; PULMICORT0.5 MG/21 INH; SYNTHROID25 MCG PO; TOPROL XL100 MG PO; TUMS X-STR300 MG PO; VENTOLIN HFA [SP8 GM INH
[2019-12-27 11:36] LABS: BASOPHILS 0.1 % (0-2); EOSINOPHILS 0.6 % (0-7); HEMATOCRIT 44.8 % (42.0-54.0); HEMOGLOBIN 15.2 g/dL (13.5-17.5); IMMATURE GRANULOCYTES 0.7 % (0-5); LYMPHOCYTES 13.6 % (15-50); MCH 32.3 pg (26.0-34.0); MCHC 33.9 g/dL (31.0-37.0); MCV 95.3 fL (80.0-100.0); MEAN PLATELET VOLUME 10.7 fL (7.4-10.4); MONOCYTES 10.7 % (2-11); NEUTROPHILS 74.3 % (40-80); PLATELET COUNT 162 10x3/uL (130-400); RDW 13.1 % (11.5-14.5); WBC 7.2 10x3/uL (4.8-10.8)
[2019-12-27 11:41] LABS: APTT 28.5 SECONDS (22.8-39.4); INR 1.03 (0.85-1.17); PROTIME 13.4 SECONDS (11.6-15.0)
[2019-12-27 11:46] LABS: CALC OSMOLALITY 276 mosm/kg (275-300); CALCIUM 8.9 mg/dL (8.5-10.1); CARBON DIOXIDE 28.1 mmol/L (21.0-32.0); CHLORIDE - SERUM 97 mmol/L (98-107); CREATININE - SERUM 1.1 mg/dL (0.6-1.3); GLUCOSE 175 mg/dL (74-106); POTASSIUM - SERUM 4.3 mmol/L (3.5-5.1); SODIUM 134 mmol/L (136-145); UREA NITROGEN 27 mg/dL (7-18); eGFR NON AFRICAN AMERICAN 68 mL/min (90-120)
[2019-12-27 12:03] LABS: ALBUMIN 3.3 g/dL (3.4-5.0); ALKALINE PHOSPHATASE 138 U/L (30-120); ALT (SGPT) 44 U/L (10-68); BILIRUBIN - TOTAL 0.93 mg/dL (0.2-1.3); CKMB 2.3 U/L (0.0-3.6); CREATINE KINASE 87 UL (21-232); PROTEIN - SERUM 6.8 g/dL (6.4-8.2); TROPONIN-I 0.019 ng/mL (0.000-0.060)
--- NOTE | 2019-12-27 12:10 | NUR ---
CRITICAL LAB: LACTIC ACID 2.5 DR TRIVEDI NOTIFIED
[2019-12-27 12:46] LABS: BACTERIA FEW /hpf (NEGATIVE); BILIRUBIN NEGATIVE (NEGATIVE); EPITHELIAL CELLS RARE /hpf (0-5); GLUCOSE NEGATIVE (NEGATIVE); KETONE NEGATIVE (NEGATIVE); NITRITE NEGATIVE (NEGATIVE); RED CELLS - URINE NONE SEEN /hpf (0-5); SPECIFIC GRAVITY 1.015 (1.005-1.020); WHITE CELLS - URINE OCC /hpf (NEGATIVE)
[2019-12-27 14:00] VITALS: BP 163/70
--- NOTE | 2019-12-27 15:00 | NUR ---
TO ROOM 2222 FROM ER VIA STRETCHER. ASSESSMENT PER FLOW SHEET. PATIENT IS WITHOUT DISTRESS.CALL LIGHT IN REACH. ORIENTATION TO ROOM.FALL PRVENTION WITH JORJE MAT. DOOR OPEN
[2019-12-27 15:10] VITALS: BP 137/53; BMI 26.6
[2019-12-27 22:05] VITALS: BP 124/99
[2019-12-28 01:08] VITALS: BP 148/72
[2019-12-28 05:38] VITALS: BP 120/51
[2019-12-28 05:59] LABS: BASOPHILS 0 % (0-2); EOSINOPHILS 0 % (0-7); HEMATOCRIT 44.1 % (42.0-54.0); HEMOGLOBIN 14.9 g/dL (13.5-17.5); IMMATURE GRANULOCYTES 0.7 % (0-5); LYMPHOCYTES 8.2 % (15-50); MCH 32.1 pg (26.0-34.0); MCHC 33.8 g/dL (31.0-37.0); MEAN PLATELET VOLUME 11.2 fL (7.4-10.4); MONOCYTES 8.2 % (2-11); NEUTROPHILS 82.9 % (40-80); PLATELET COUNT 173 10x3/uL (130-400); RBC 4.64 10x6/uL (4.20-6.10); RDW 13.2 % (11.5-14.5); WBC 5.8 10x3/uL (4.8-10.8)
--- NOTE | 2019-12-28 06:00 | NUR ---
I have reviewed this patient and I concur with the Shift Assessment completed by the Licensed Practical Nurse today this shift.
[2019-12-28 06:46] LABS: ALBUMIN 2.8 g/dL (3.4-5.0); ANION GAP 11.3 mmol/L (8-16); BILIRUBIN - TOTAL 0.82 mg/dL (0.2-1.3); CALCIUM 8.9 mg/dL (8.5-10.1); CARBON DIOXIDE 28.9 mmol/L (21.0-32.0); CREATININE - SERUM 1.1 mg/dL (0.6-1.3); POTASSIUM - SERUM 4.2 mmol/L (3.5-5.1); PROTEIN - SERUM 6.6 g/dL (6.4-8.2)
[2019-12-28 09:57] VITALS: BP 151/58
[2019-12-28 10:42] VITALS: BMI 26.6
--- NOTE | 2019-12-28 11:06 | NUR ---
PER RN JACQUELINE, PATIENT IS REFUSING MRI AT THIS TIME. WE WILL CHECK BACK WITH HIM PRIOR TO LEAVING FOR THE DAY.
--- NOTE | 2019-12-28 12:43 | NUR ---
PT HAS DECLINED MRI WELL PORT PLACEMENT UNTIL EMANI TO DISCUSS WITH SPOUSE PRESENT. NO OTHER NEEDS VOICED AT THIS TIME, CONTINUE WITH PLAN OF CARE
[2019-12-28 14:41] VITALS: BP 140/60
--- NOTE | 2019-12-28 15:38 | NUR ---
I have reviewed this patient and I concur with the Shift Assessment completed by the Licensed Practical Nurse today this shift.
[2019-12-28 17:46] VITALS: BP 157/68
[2019-12-28 20:00] VITALS: BP 106/55
[2019-12-29] VITALS (14 sets, daily range): BP systolic 112–180; BP diastolic 52–668; Ht 172.7 cm; Wt 82.9 kg
--- NOTE | 2019-12-29 01:11 | NUR ---
I have reviewed this patient and I concur with the Shift Assessment completed by the Licensed Practical Nurse today this shift.
--- NOTE | 2019-12-29 02:28 | NUR ---
PT RESTING IN BED. EYES OPEN. CONFUSED AT TO WHERE HE IS AND WHY OR HOW HE GOT HERE. REORIENTED PT. PT HAS HAD MULTIPLE ATTEMPTS ON GETTING UP ON HIS OWN TONIGHT. JORJE ALARM ON. BREATHING SHORT OR BREATH. LUNG SOUNDS DIMINISHED. HAD TO GO UP ON O2 TO 4L. SKIN CLEAN DRY AND INTACT. BOWEL SOUNDS ACTIVE. NO SWELLING PRESENT. BED RAILS UPX3. JORJE ALARM ON. WILL CONTINUE PLAN OF CARE. CALL LIGHT IN REACH. BED LOWERED AND LOCKED. FALL PRECAUTIONS IN PLACE.
--- NOTE | 2019-12-29 07:30 | NUR ---
PATIENT IN BED WITH EYES CLOSED RESTING QUIETLY. O2 ON AND IV INTACT. JORJE ALARM ON. CALL LIGHT WITHIN REACH.
[2019-12-29 08:45] LABS: BASOPHILS 0.2 % (0-2); EOSINOPHILS 0.1 % (0-7); HEMOGLOBIN 16.4 g/dL (13.5-17.5); IMMATURE GRANULOCYTES 1.5 % (0-5); LYMPHOCYTES 6.6 % (15-50); MCH 32.7 pg (26.0-34.0); MCHC 34.2 g/dL (31.0-37.0); MCV 95.8 fL (80.0-100.0); MEAN PLATELET VOLUME 11.3 fL (7.4-10.4); NEUTROPHILS 86.6 % (40-80); PLATELET COUNT 199 10x3/uL (130-400); RBC 5.01 10x6/uL (4.20-6.10); RDW 13.5 % (11.5-14.5); WBC 10.3 10x3/uL (4.8-10.8)
--- NOTE | 2019-12-29 08:45 | NUR ---
PATIENT IN BED WITH IV INTACT. STATING HE CANT BREATHE. VERY SHORT OF BREATH. SKIN CYANOTIC. SATS 72% TURNED O2 UP AND PLACED IN MOUTH BC PATIENT WOULD NOT BREATH THROUGH NOSE. SATS UP TO 74% CALLED RAPID RESPONSE AT THIS TIME. NEW ORDERS COMPLETED AND CARRIED OUT.
[2019-12-29 08:49] LABS: ANION GAP 21.1 mmol/L (8-16); CALCIUM 8.8 mg/dL (8.5-10.1); CREATININE - SERUM 1.2 mg/dL (0.6-1.3); POTASSIUM - SERUM 4.6 mmol/L (3.5-5.1)
[2019-12-29 08:50] LABS: CARBON DIOXIDE 19.5 mmol/L (21.0-32.0)
--- NOTE | 2019-12-29 09:21 | NUR ---
PT ARRIVED TO ICU POST RR DUE TO POSSIBLE SEPSIS. HERE AND GIVING NEW ORDERS. PT IS URINATING ON HIMSELF. ATTMEPTED TO INSERT TAN CATHETER AND UNSUCCESSFUL. ORDERED COUDE CATHETER AND CONDOM CATHETERS FROM [employer].
--- NOTE | 2019-12-29 09:25 | NUR ---
PATIENT TO ICU.
--- NOTE | 2019-12-29 09:33 | NUR ---
NOTIFIED FAMILY THAT PATIENT WAS SENT TO ICU.
[2019-12-29 10:01] LABS: CKMB 4.9 U/L (0.0-3.6); CREATINE KINASE 210 UL (21-232)
--- NOTE | 2019-12-29 10:15 | NUR ---
patient states he cant breathe. elevated hob. repositioned. spo2 98%. reassured patient. instructed to take big deep breaths slowly thorugh nose and out mouth
[2019-12-29 10:31] LABS: TROPONIN-I 0.072 ng/mL (0.000-0.060)
--- NOTE | 2019-12-29 10:59 | NUR ---
PATENT COMPLAINING OF SOB STATING HE "CANNOT BREATHE". PT IS RECEIVING MULTIPLE NS BOLUS DUE TO SEPSIS. WHEEZING NOTED TO LEFT UPPER, MIDDLE, AND LOWER LOBES. NO CRAKLES NOTED AT THIS TIME. O2 SAT FLUCTUATING BETWEEN 85% AND 92%. PAGED AND NEW ORDERS RECIEVED TO PLACE PT ON BIPAP AT 27/03. PAGED RESP THERAPY AND NOTIFIED THEM WELL.
--- NOTE | 2019-12-29 11:34 | NUR ---
DR FARRAR AT BEDSIDE. BIPAP ON. BP UNDER CONTROL WITH ATIVAN
--- NOTE | 2019-12-29 16:20 | NUR ---
patient can not tolearte coming off bipap. begins to get anxious and desat.
--- NOTE | 2019-12-29 18:30 | NUR ---
attempted to take patient off bipap. did not tolerate immediately dropped to 70%
--- NOTE | 2019-12-29 19:00 | NUR ---
ASSESSMENT COMPLETED PER FLOWSHEETS. PT AROUSES WITH VOICES, CONFUSED AND AGITATED, TRYNG TO PULL BIPAP OFF. CONT BIPAP PER ORDER. ST ON CM. REPOSITIONED FOR COMFORT. HOB UP. SIDE RAILS UP. CONT TO MONITOR.
--- NOTE | 2019-12-29 23:00 | NUR ---
REASSESSMENT COMPLETED. SEE FLOWSHEETS FOR ALL FINDINGS. NO ACUTE SINGS OF DISTRESS NOTED. VSS. CONT PT ON BIPAP PER ORDER. CPOC.
[2019-12-30] VITALS (23 sets, daily range): BP systolic 128–181; BP diastolic 54–94
--- NOTE | 2019-12-30 03:00 | NUR ---
REASSESSMENT COMPLETED. SEE FLOWSHEETS FOR ALL FINDINGS. PT RESTING QUIETLY WITHOUT DISTRESS AT THIS TIME. CONT BIPAP PER ORDER. VSS. CPOC.
--- NOTE | 2019-12-30 07:30 | NUR ---
AWAKE AND RESPONSIVE AND ASSISTED PATIENT CHANGING POSITION FOR COMFORT. WRIST RESTRAINTS CHECKED AND REMOVED WHILE IN ROOM AND REPLACED. LUNGS DIMINISHED X4 ANTERIOR . ABDOMEN SOFT WITH BOWLE SOUNDS NOTED X4. NO PERIPHERAL EDEMA NOTED. IV TO LEFT ARM AND HAND W/O ANY S/S OF INFECTION/INFILTRATION. BIPAP INFUSING AT PRESRIBED RATE W/O DISTRESS AT THIS TIME.
[2019-12-30 08:30] LABS: BASOPHILS 0.1 % (0-2); EOSINOPHILS 0 % (0-7); HEMOGLOBIN 13.5 g/dL (13.5-17.5); IMMATURE GRANULOCYTES 0.3 % (0-5); MCH 31.9 pg (26.0-34.0); MCHC 32.9 g/dL (31.0-37.0); MCV 96.9 fL (80.0-100.0); MEAN PLATELET VOLUME 10.9 fL (7.4-10.4); MONOCYTES 5.3 % (2-11); NEUTROPHILS 91.3 % (40-80); PLATELET COUNT 163 10x3/uL (130-400); RBC 4.23 10x6/uL (4.20-6.10); RDW 13.7 % (11.5-14.5); WBC 8.7 10x3/uL (4.8-10.8)
[2019-12-30 09:27] LABS: ALBUMIN 2.6 g/dL (3.4-5.0); ALKALINE PHOSPHATASE 115 U/L (30-120); ALT (SGPT) 39 U/L (10-68); BILIRUBIN - TOTAL 0.99 mg/dL (0.2-1.3); CALC OSMOLALITY 285 mosm/kg (275-300); CALCIUM 7.7 mg/dL (8.5-10.1); CARBON DIOXIDE 23.6 mmol/L (21.0-32.0); CHLORIDE - SERUM 104 mmol/L (98-107); POTASSIUM - SERUM 4.5 mmol/L (3.5-5.1); PROTEIN - SERUM 5.6 g/dL (6.4-8.2); SODIUM 138 mmol/L (136-145); UREA NITROGEN 36 mg/dL (7-18); eGFR NON AFRICAN AMERICAN 76 mL/min (90-120)
[2019-12-30 09:35] LABS: GLUCOSE 136 mg/dL (74-106)
--- NOTE | 2019-12-30 10:00 | NUR ---
PATIENT CONSUMED 25% OF BREAKFAST WITH DYSPNEA AND O2 SAT 84% WITH 9L HIFLOW. BIPAP REAPPLIED AFTER BREAKFAST AND MEDICATIONS TAKEN. DECREASE DYSPNEA NOTED WITH BIPAP. RESTRAINTS CHECKED PER PROTOCOL AND LOOSENED. INSTRUCTED ON NEED TO NOT PULL AT TUBES. PATIENT VERBALIZED UNDERSTANDING. ENCOURAGED TO USE CALL LIGHT FOR ASSSIT.
--- NOTE | 2019-12-30 11:54 | NUR ---
Nutrition Follow-up: Nursing reports pt ate ~25% of breakfast this AM; put back on bipap following meal 2/2 desat. Diet: Diabetic Wt: 182# (12/29); 175# (12/27) No BMs recorded Labs noted: Glu 136, Ca 7.7, Alb 2.6 Meds noted: Protonix, Linzess, Tums, Glucophage, LR @ 100, Humulin, Lasix, KDur, Solumedrol -Encourage PO intake and honor food preferences within diet restrictions. -+Glucerna with meals. -If pt unable to maintain adequate PO intake, MD may consider nutrition support. -Monitor wt. -RD following.
--- NOTE | 2019-12-30 12:00 | NUR ---
RESPIRATORY HERE AND ATTEMPTED TO CHANGE TO VAPOTHERM BUT PATINET UNABLE TO TOLERATE AT THIS TIME. PATIENT HAD LARGENONFORMED STOOL. PATIENT WAS PUT BACK ON BIPAP AT THIS TIME. CONTINUED INTERMITTANT CONFUSION. ENCOURAGED TO USE CALL LIGHT FOR ASSSIT. TAN CATH PATENT WITH CLEAR CYRUS URINE NOTED.
--- NOTE | 2019-12-30 13:50 | NUR ---
CHECKED ON STATUS OF PATIENT FOR MR BRAIN W/WO THAT WAS ORDERED BY DR JOHNSON. PT STILL UNABLE TO COME OFF BIPAP MACHINE WITHOUT O2 STATS DROPPING. INFORMED MACIEL RINCON THAT I WILL FOLLOW UP OVER THE WEEKEND AND IF HE GETS WHERE HE CAN TOLERATE THE EXAM TO CALL MED IMAGING AND THEY CAN CALL ME IN IF IT IS STAT.
--- NOTE | 2019-12-30 14:00 | NUR ---
IVF INFUING AT PRESCRIBED RATE. BIPAP INTACT W/O DISTRESS. PT REORIENTED TO WHERE HE WAS AND WHY IN HOSPITAL. NO PERIPHERAL EDEMA NOTED. ENCOURAGED TO USE CALL LIGHT FOR ASSSIT
--- NOTE | 2019-12-30 14:00 | NUR ---
RESPIRATORY THERPY CHANGED TO VAPOTERM AND TOLERATING WELL WITH O2 SSAT 92%. WRIST RESTRAINTSMONITORED AND RELEASED. PATIENT BECOMING MORE ALERT AT THIS TIME. NO DYSPNEA NOTED AT THIS TIME. ENCOURAGED TO USE CALL LIGHT FOR ASSSIT
--- NOTE | 2019-12-30 16:12 | NUR ---
RESTING WITH EYES COLSED WITH RESP EVEN AND UNLABORED. NO CHANGE IN CONDITION
--- NOTE | 2019-12-30 18:31 | NUR ---
O2 SAT 88% AND CHNGED TO BIPAP. PERICARE AND LINEN CHANGED WITH LARGE LIQUID INCONTINENT BM.PATINET O2 SAT UP TO 92%. DENIES ANY PAIN OR DISCOMFORT WITH WRIST RESTRAINTS RELEASED AND REAPPLIED.
--- NOTE | 2019-12-30 18:50 | NUR ---
PATIENT IN BED FIGHTING AND SAYING "I'M GOING HOME!". I TRIED TO REORIENT PATIENT AND PATIENT IS STILL CONFUSED. ORIENTATED ONLY TO SELF. NO S/S OF ACUTE DISTRESS. PATIENT ONLY C/O WANTING TO GO HOME. PATIENT WAS ON VAPOTHERM, AND WAS TRANSFERRED TO THE [facility]. O2 STATS ARE STABLE OF THIS TIME. PATIENT HAS IV IN LEFT ARM, NORMAL SALINE @ 150 ML/HR, AND LEFT HAND, SALINE LOC. BOTH IVS ARE PATENT WITHOUT REDNESS, SWELLING, OR TENDERNESS. PATIENT IS IN SOFT RESTRAINTS ON BOTH LEFT AND RIGHT ARMS. PATIENT HAS TAN AND IS INCONTINENT OF BOWEL. CALL LIGHT IN PLACE. WILL CONTINUE TO MONITOR.
--- NOTE | 2019-12-30 20:02 | NUR ---
PATIENT RESTING IN BED QUIETLY WITH EYES CLOSED. NO S/S OF ACUTE DISTRESS. NO C/O AT THIS TIME. PATIENT STILL HAS BIPAP ON. PATIENT HAS IV IN LEFT ARM, LR 150 ML/HR. IV IS PATENT WITHOUT REDNESS, SWELLING, OR TENDERNESS. CALL LIGHT IN PLACE. WILL CONTINUE TO MONITOR.
--- NOTE | 2019-12-30 20:17 | NUR ---
JANINA WEBSTER, WENT IN AND PATIENT REFUSED HIS BATH. WILL CHECK LATER. CALL LIGHT IN PLACE. WILL CONTINUE TO MONITOR.
--- NOTE | 2019-12-30 22:00 | NUR ---
PATIENT RESTING IN BED WITH EYES CLOSED. PATIENT O2 STATS KEEP FLUCTUATING DOWN (82-85) AND THEN ONCE HAVING A LITTLE 100% O2 HE WILL GO BACK UP (93-97). HE IS STILL FIGHTING AGAINST KEEPING HIS BIPAP ON. IV IS STILL PATENT IN LEFT FOERARM WITH LR @150 ML/HR. CALL LIGHT IN PLACE. WILL CONTINUE TO MONITOR.
[2019-12-31] VITALS (21 sets, daily range): BP systolic 95–177; BP diastolic 40–111
--- NOTE | 2019-12-31 00:09 | NUR ---
PATIENT RESTING IN BED. NO S/S OF ACUTE DISTRESS. PATIENT'S O2 HAS BEEN MORE STABLE ON BIPAP. PATIENT STILL HAS IV IN LEFT FOREARM LR @150 ML/HR. IV IS PATENT. PATIENT IS STILL IN SOFT WRIST RESTRAINTS. CALL LIGHT IN PLACE. WILL CONTINUE TO MONITOR.
--- NOTE | 2019-12-31 02:00 | NUR ---
PATIENT RESTING IN BED. NO S/S OF ACUTE DISTRESS. PATIENT STARTED INTO A-FIB AND THE CHARGE NURSE CONTACTED ST. [facility], AMIE RECIEVED. O2 IS STILL STABLE. PATIENT IS STILL ON BIPAP. PATIENT STILL HAS IV IN LEFT FOREARM, LR @ 150 ML/HR. IV IS PATENT. PATIENT IS IN SOFT WRIST RESTRAINTS. CALL LIGHT IN PLACE. WILL CONTINUE TO MONITOR.
--- NOTE | 2019-12-31 02:04 | NUR ---
DR MASCORRO NOTIFIED OF PT RHYTHM CHANGE TO A-FIB WITH RVR. ORDERS RECEIVED.
[2019-12-31 02:48] LABS: BASOPHILS 0.1 % (0-2); EOSINOPHILS 0 % (0-7); HEMOGLOBIN 14.8 g/dL (13.5-17.5); IMMATURE GRANULOCYTES 0.5 % (0-5); LYMPHOCYTES 2.7 % (15-50); MCH 31.8 pg (26.0-34.0); MCHC 32.9 g/dL (31.0-37.0); MCV 96.8 fL (80.0-100.0); MEAN PLATELET VOLUME 11.5 fL (7.4-10.4); NEUTROPHILS 92.7 % (40-80); PLATELET COUNT 183 10x3/uL (130-400); RBC 4.65 10x6/uL (4.20-6.10); RDW 13.8 % (11.5-14.5); WBC 12.1 10x3/uL (4.8-10.8)
[2019-12-31 03:05] LABS: ALBUMIN 2.7 g/dL (3.4-5.0); ALKALINE PHOSPHATASE 143 U/L (30-120); ALT (SGPT) 49 U/L (10-68); BILIRUBIN - TOTAL 1.37 mg/dL (0.2-1.3); CALC OSMOLALITY 287 mosm/kg (275-300); CALCIUM 8.3 mg/dL (8.5-10.1); CHLORIDE - SERUM 104 mmol/L (98-107); CREATININE - SERUM 0.9 mg/dL (0.6-1.3); GLUCOSE 133 mg/dL (74-106); POTASSIUM - SERUM 4.1 mmol/L (3.5-5.1); PROTEIN - SERUM 6.3 g/dL (6.4-8.2); SODIUM 138 mmol/L (136-145); UREA NITROGEN 40 mg/dL (7-18); eGFR NON AFRICAN AMERICAN 86 mL/min (90-120)
--- NOTE | 2019-12-31 04:00 | NUR ---
PATIENT RESTING IN BED WITH EYES CLOSED. NO S/S OF DISTRESS. HEART RYTHM HAS BECOME CONTROLLED A-FIB. O2 STATS ARE STILL STABLE. PATIENT STILL HAS IV IN LEFT FOREARM, LR @ 150 ML/HR. IV IS PATENT. PATIENT IS STILL IN SOFT WRIST RESTRAINTS. CALL LIGHT IN PLACE. WILL CONTINUE TO MONITOR.
--- NOTE | 2019-12-31 06:45 | NUR ---
PATIENT RESTING IN BED WITH EYES CLOSED. NO S/S OF DISTRESS. NO C/O AT THIS TIME. PATIENT STILL HAS IV IN LEFT FOREARM LR @ 150 ML/HR. IV IS PATENT. PATIENT IS ON BIPAP AND O2 STATS ARE GOOD. PATIENT IS STILL IN SOFT RESTRIANTS. CALL LIGHT IN PLACE. WILL CONTINUE TO MONITOR.
--- NOTE | 2019-12-31 08:37 | NUR ---
PT AWAKE AND FOLLOWS COMMAND. IS WEARING BIPAP. [id number].SPO2 DROPS TO 86%. O2 TITRATED BY RT. PT INC OF STOOL. BATHED AND LINENS CHANGED.
--- NOTE | 2019-12-31 11:30 | NUR ---
BIPAP TAKEN OFF TO GIVE PO MEDS AND MOUTH CARE. PT DID TAKE MEDS W/O PROBLEMS AND THEN SPO2 DROPS TO 86%. BIPAP REPLACED. PAGED DR FARRAR AND REPORTED CXR FINDINGS. REC'D ORDER TO REPETE CXR AT NOON.
--- NOTE | 2019-12-31 13:10 | NUR ---
CXR DONE WITH DR FARRAR IN DEPT. PT PLACED ON VAPOTHERM. SPO2 DROPS TO 86% AFTER APPROX 10MIN. PLACED BIPAP BACK ON.
--- NOTE | 2019-12-31 15:08 | NUR ---
PT INC OF STOOL. BATHED AND LINENS CHANGED.BIPAP TAKEN OFF AND HIGHFLOW 16L. PT TOOK 1 SIP WATER. SPO2 DROPS TO 88% QYUCKLY WITH BIPAP OFF. BIPAP REPLACED QUICKLY.
--- NOTE | 2019-12-31 16:56 | NUR ---
PT C/O GENERALIZED BODY PAIN. NORCO GIVEN.
--- NOTE | 2019-12-31 18:55 | NUR ---
INCREASED FIO2 TO 1.0 IPAP TO 14 AND EPAP TO 7.
--- NOTE | 2019-12-31 18:59 | NUR ---
PT STATES CANT BREATH. REPORTED TO DR FARRAR. REC'D NEW ORDERS. RT NOTIFIED AND BIPAP CHANGES PER RT. MS GIVEN ORDERED AIR HUNGER.
--- NOTE | 2019-12-31 19:00 | NUR ---
PT ASSESSMENT COMPLETED AT THIS TIME, NO CHANGES NOTED FROM NURSE REPORT, PT IS OB BIPAP AND RESP VERY LABORED, NURSE STATES THAT SHE JUST GAVE PRN MORPHINE FOR AIR HUNGER, SPO2 LOW UPPER 80'S TO LOW 90'S. WILL MONITOR FOR CHANGES
--- NOTE | 2019-12-31 20:20 | NUR ---
PT HI HIGH FOLWERS POSITION, RESP EFFORT AND WORK OF BREATHING IS MUCH LESS THAN PREVIOUS, WILL MONTIOR FOR CHANGES
--- NOTE | 2019-12-31 20:40 | NUR ---
PATIENT RESTING IN BED WITH EYES CLOSED. NO S/S OF ACUTE DISTRESS. NO C/O AT THIS TIME. PATIENT HAS IV IN LEFT FOREARM LR @ 100 ML/HR, AND IV IN LEFT HAND. BOTH IVS ARE PATENT WITHOUT REDNESS, TENDERNESS, OR SWELLING. PATIENT IS ON BIPAP 100%, AND O2 STATS ARE STABLE IN LOW 90S. PATIENT IS INCONTINENT OF BOWEL AND HAS A TAN. PATIENT HAS REFUSED SCDS. CALL LIGHT IN PLACE. WILL CONTINUE TO MONITOR
--- NOTE | 2019-12-31 22:00 | NUR ---
PATIENT IS RESTING WITH EYES CLOSED. NO S/S OF ACUTE DISTRESS. NO C/O AT THIS TIME. PATIENT IS ON BIPAP 100%, O2 STATS ARE STAYING IN THE LOW 90S. PATIENT HAS A LEFT FOREARM IV, LR @ 100 ML/HR. IV IS PATENT WITHOUT REDNESS, SWELLING, OR TENDERNESS. CALL LIGHT IN PLACE. WILL CONTINUE TO MONITOR.
--- NOTE | 2019-12-31 22:25 | NUR ---
DECREASED O2 SAT NOTED DESPITE FIO2 OF 100% ON BIPAP, PT INCREASINGLY RESTLESS AND AGITATED. PT NOTIFIED REGARDING CHANGE IN STATUS, STATES SHE WILL BE ON HER WAY.
--- NOTE | 2019-12-31 22:51 | NUR ---
PT CONDITION DETERIORATING, PT REQUESTING TO BRING THEIR TIPPING MACHINE OPERATOR UP WITH HER. PERMISSION RECEIVED FROM DR JOHNSON FOR THIS REQUESTED.
--- NOTE | 2019-12-31 23:32 | NUR ---
PATIENT IN RESTRAINTS BECAUSE HE KEPT RIPPING HIS BIPAP OFF. THE LAST TIME HE RIPPED IT OFF, HIS O2 STATS WENT TO 46, AND THEY STILL AREN'T ABOVE 85%. IV IS IN LEFT FOREARM. IV IS PATENT. AND DIRECTOR OF BUSINESS OPERATIONS ARE IN THE ROOM NOW, HAVING TIME WITH PATIENT. CALL LIGHT IN PLACE. WILL CONTINUE TO MONITOR.
--- NOTE | 2019-12-31 23:50 | NUR ---
PATIENT'S SAEED REQUESTED COMFORT CARE, "I JUST WANT HIM TO BE COMFORTABLE". DOCTOR CHARAN NOTIFIED AND COMFORT CARE ORDERS RECIEVED. MAYRA FRENCH RN WITNESSED. JUAN PABLO DE PAZ RN CHARGE NURSE. 2MG OF MORPHINE GIVEN IV. BLOOD PRESSURE 173/78. O2 ON 100% BIPAP IS STAYING AROUND 84%. CALL LIGHT IN PLACE. WILL CONTINUE TO MONITOR.
--- NOTE | 2020-01-01 00:23 | NUR ---
PATIENT RESTING IN BED WITH AT BEDSIDE. NO CHANGES IN ACUTE DISTRESS. PATINT COMPLAINS OF WANTING TO TAKE THE MASK OFF. COMPLAINS THAT THE MORPHINE HASN'T WORKED. PATIENT HAS IV IN LEFT ARM, IV IS PATENT. CALL LIGHT IN PLACE. WILL CONTINUE TO MONITOR.
--- NOTE | 2020-01-01 01:29 | NUR ---
PT THRASHING AND MOANING IN BED, PRN MORPHINE 4MG ADMINISTERED IV PER MD ORDER/PT REQUEST.
--- NOTE | 2020-01-01 02:16 | NUR ---
PT AGITATED, MOANING. PRN ATIVAN 2MG ADMINISTERED PER MD ORDER/PT COMFORT/PT REQUEST. AT BEDSIDE, DENIES ANY OTHER NEEDS AT THIS TIME. WILL CONT TO MONITOR CLOSELY.
--- NOTE | 2020-01-01 04:45 | NUR ---
PATIENT'S HEART STOPPED BEATING THIS MORNING @ 0255. PATIENT PRONOUNCED @ 0344. PATIENT'S BELONGINGS WENT HOME WITH . PATIENT TAN AND IVS DC'D. PATIENT WAS CLEANED UP AND SHEET WAS PLACED OVER HEAD. AWAITING HOME ARRIVAL.
--- NOTE | 2020-01-01 05:36 | NUR ---
CARLITA HERE TO BOOM OPERATOR .
--- NOTE | 2020-01-02 12:19 | NUR ---
Per CMS protocol, restraint report logged into base.
== END 2020-01-01 02:55 | DRG 180 ==
LOC: D.ER 10:49 → D.ICU 12:52 → D.MS 12:52 → D.ICU 12-29 09:21
PROVIDERS: Family Medicine; Internal Medicine Hematology & Oncology; Internal Medicine Pulmonary Disease; ADMIT Family Medicine; ATTEND Family Medicine
PROC: 5A09457 Assistance with Respiratory Ventilation, 24-96 Consecutive Hours, Continuous Positive Airway Pressure (ICD-10-PCS; principal; 2019-12-29)
DX: C34.92 Malignant neoplasm of unspecified part of left bronchus or lung (principal); I21.A1 Myocardial infarction type 2; J96.01 Acute respiratory failure with hypoxia; A41.9 Sepsis, unspecified organism; J18.9 Pneumonia, unspecified organism; S22.31XA Fracture of one rib, right side, initial encounter for closed fracture; C79.89 Secondary malignant neoplasm of other specified sites; J44.1 Chronic obstructive pulmonary disease with (acute) exacerbation; R04.2 Hemoptysis; J98.11 Atelectasis; J44.0 Chronic obstructive pulmonary disease with (acute) lower respiratory infection; R33.9 Retention of urine, unspecified; E11.9 Type 2 diabetes mellitus without complications; K57.90 Diverticulosis of intestine, part unspecified, without perforation or abscess without bleeding; I25.10 Atherosclerotic heart disease of native coronary artery without angina pectoris; I10 Essential (primary) hypertension; J61 Pneumoconiosis due to asbestos and other mineral fibers; G89.3 Neoplasm related pain (acute) (chronic); K21.9 Gastro-esophageal reflux disease without esophagitis; E03.8 Other specified hypothyroidism; E06.3 Autoimmune thyroiditis; K59.00 Constipation, unspecified; W19.XXXA Unspecified fall, initial encounter; M81.0 Age-related osteoporosis without current pathological fracture; K76.89 Other specified diseases of liver; N28.1 Cyst of kidney, acquired; K80.20 Calculus of gallbladder without cholecystitis without obstruction; Z66 Do not resuscitate; Z87.891 Personal history of nicotine dependence; R40.2244 Coma scale, best verbal response, confused conversation, 24 hours or more after hospital admission; R40.2354 Coma scale, best motor response, localizes pain, 24 hours or more after hospital admission; R40.2144 Coma scale, eyes open, spontaneous, 24 hours or more after hospital admission